=== PATIENT | male | born 1975 | race Hispanic/Latino ===

== ENCOUNTER 2024-04-07 11:17 | Emergency (ER) | payer SELFPAY ==
[~2024-04-07] VITALS: Ht 175.3 cm; Wt 88.5 kg
[2024-04-07 11:44] VITALS: PULSE 82; RESP 15; TEMP 98.3
[2024-04-07] MEDS ORDERED: BUPIVACAINE HCL 0.25% 10ML MPF VIAL INJ ONE (12:56)
[2024-04-07] MEDS ORDERED: LIDOCAINE HCL 1% LOCAL INJ 20 ML VIAL ONE (12:56)
[2024-04-07] MEDS: LIDOCAINE HCL 1% LOCAL INJ 20 ML VIAL INJ ONE (13:39)
[2024-04-07] MEDS: BUPIVACAINE HCL 0.25% 10ML MPF VIAL INJ ONE (13:39)
[2024-04-07] MEDS ORDERED: CEPHALEXIN500 MG PO (14:22)
[2024-04-07] MEDS ORDERED: BACTRIM DS TAB1 EACH PO (14:22)
[2024-04-07 15:36] VITALS: BP 120/84; PULSE 70; RESP 16; TEMP 98; O2SAT 100
== END 2024-04-07 15:44 | disposition home or self-care (01) ==
LOC: ER 13:07
DX: L03.012 Cellulitis of left finger (principal)
CPT/HCPCS: 10060; 73140; 99283; J2003